=== PATIENT | female | born 1995 | race Hispanic/Latino ===

== ENCOUNTER → 2016-12-25 | Outpatient (REF) | payer OTHER | LOC: M SFHCLERA 14:55 | PROVIDERS: ATTEND Nurse Practitioner Family | DX: J06.9 Acute upper respiratory infection, unspecified (principal) ==

== ENCOUNTER → 2017-04-02 | Outpatient (REF) | payer OTHER | LOC: M SFHCLERA 18:49 | PROVIDERS: ATTEND Nurse Practitioner Family | DX: R10.13 Epigastric pain (principal) ==

== ENCOUNTER 2019-03-29 19:25 | Emergency (ER) | payer OTHER ==
[~2019-03-29] VITALS: Ht 167.6 cm; Wt 75.0 kg
[2019-03-29 20:27] LABS: BASO # 0.1 10^3/uL (0.0-0.2); BASO % 0.7 % (0.0-1.0); EOS # 0.6 10^3/uL (0.0-0.50); EOS % 8.7 % (0.0-3.0); HEMATOCRIT 42.7 % (36.0-47.0); HEMOGLOBIN 14.4 g/dl (12.0-15.5); LYMPH # 3.1 10^3/uL (1.5-6.5); LYMPH % 42.3 % (24.0-44.0); MEAN CORPUSCULAR HEMOGLOBIN 29.2 pg (27.0-33.0); MEAN CORPUSCULAR HGB CONC 33.7 g/dl (32.0-36.5); MEAN CORPUSCULAR VOLUME 86.6 fl (80.0-96.0); MONO # 0.5 10^3/uL (0.0-0.8); MONO % 6.5 % (0.0-5.0); NEUTROPHILS # 3.1 10^3/uL (1.8-7.7); NEUTROPHILS % 41.5 % (36.0-66.0); PLATELET COUNT, AUTOMATED 316 10^3/uL (150-450); RED BLOOD COUNT 4.93 10^6/uL (4.00-5.40); WHITE BLOOD COUNT 7.4 10^3/uL (4.0-10.0)
[2019-03-29 21:01] LABS: ALBUMIN 3.8 GM/DL (3.2-5.2); ALT/SGPT 29 U/L (12-78); BILIRUBIN,DIRECT < 0.1 MG/DL (0.0-0.2); BILIRUBIN,TOTAL 0.3 MG/DL (0.2-1.0); BLOOD UREA NITROGEN 20 MG/DL (7-18); CALCIUM LEVEL 9.4 MG/DL (8.5-10.1); CARBON DIOXIDE LEVEL 27 MEQ/L (21-32); CHLORIDE LEVEL 106 MEQ/L (98-107); GLOMERULAR FILTRATION RATE > 60.0 (>60); GLUCOSE, FASTING 94 MG/DL (70-100); LIPASE 167 U/L (73-393); POTASSIUM SERUM 4.7 MEQ/L (3.5-5.1); SODIUM LEVEL 139 MEQ/L (136-145); TOTAL PROTEIN 7.9 GM/DL (6.4-8.2)
--- NOTE | 2019-03-29 23:28 | REPVR ---
EXAM: US Abdomen Limited, Right Upper Quadrant EXAM DATE/TIME: 03/29/2019 10:48 PM CLINICAL HISTORY: 23 years old, female; Abdominal pain; Epigastric; Additional info: Ruq pain TECHNIQUE: Imaging protocol: Real-time ultrasound of the abdomen with image documentation. Examination was focused on the right upper quadrant. COMPARISON: No relevant prior studies available. FINDINGS: Liver: Normal. No masses. Gallbladder: Hydropic gallbladder. Thickening of the gallbladder wall. No calculi demonstrated. Minimal stuart-cholecystic fluid. Negative sonographic Dobson's sign. Findings may indicate acalculous cholecystitis. Common bile duct: Common bile but measures 2.3 mm. Pancreas: Visualized pancreas is unremarkable. Right kidney: Right kidney measures 10.3 x 4.2 x 1.5 cm. IMPRESSION: Hydropic gallbladder. Thickening of the gallbladder wall. No calculi demonstrated. Minimal stuart-cholecystic fluid. Negative sonographic Dobson's sign. Findings may indicate acalculous cholecystitis. Further evaluation with nuclear imaging could be obtained if clinically desired. Electronically signed by: Jamshid Linares On 03/29/2019 23:28:28 PM
[2019-03-29] MEDS ORDERED: KETOROLAC TROMETHAMINE 10 MG TAB PO ONE (23:30)
[2019-03-29] MEDS ORDERED: KETOROLAC 30 MG/ML VIAL (J1885) IV ONE (23:45)
[2019-03-29] MEDS ORDERED: ISOVUE-370 76% 100ML VIAL (Q9967) As Ordered ONE (23:47)
[2019-03-30 02:49] VITALS: BP 115/71
--- NOTE | 2019-03-30 02:57 | REPVR ---
EXAM: CT Abdomen and Pelvis With Contrast EXAM DATE/TIME: 03/29/2019 11:32 PM CLINICAL HISTORY: 23 years old, female; Abdominal pain; Localized; Right upper quadrant (ruq); Additional info: Ruq pain TECHNIQUE: Imaging protocol: Axial computed tomography images of the abdomen and pelvis with intravenous contrast. Coronal and sagittal reformatted images were created and reviewed. Radiation optimization: All CT scans at this facility use at least one of these dose optimization techniques: automated exposure control; mA and/or kV adjustment per patient size (includes targeted exams where dose is matched to clinical indication); or iterative reconstruction. Contrast material: ISO; Contrast volume: 100 ml; Contrast route: AC; COMPARISON: GALLBLADDER US 03/29/2019 10:43 PM FINDINGS: Lung bases are clear. No pleural or pericardial effusion. The liver, spleen, pancreas and adrenals are grossly normal. Gallbladder is significantly distended. Mild thickening of the gallbladder hauser. Nodes are calcified gallstones. Kidneys demonstrate symmetric function. No focal parenchymal abnormalities or obstructive uropathy. Small and large bowel loops are grossly normal. There is no evidence of enteric obstruction. There is a normal appendix. There are several prominent mesenteric lymph nodes in the central and right mesentery. Although not pathologically enlarged, these are more numerous than typically seen. Abdominal aorta is normal in caliber with no evidence of aneurysmal dilatation. Pelvic organs are grossly normal. Small free fluid in the pelvis may be physiologic. Visualized osseous structures are grossly normal for age. IMPRESSION: Gallbladder is significantly distended. Mild thickening of the gallbladder hauser. No evidence of calcified gallstones. Correlation with symptoms of cholecystitis is recommended. Multiple central and right mesenteric lymph nodes. Although not pathologically enlarged, these are more numerous than typically seen. Correlation with symptoms of mesenteric lymphadenitis is recommended. No other acute intra-abdominal or pelvic process. There is a normal appendix. Additional nonemergent findings as described above. Electronically signed by: Dl Mims On 03/30/2019 02:57:23 AM
[2019-03-30] MEDS ORDERED: CIPR-249 PO (03:04)
[2019-03-30] MEDS ORDERED: FLAG500T PO (03:04)
[2019-03-30] MEDS ORDERED: metroNIDAZOLE (FLAGYL) 500 MG TAB PO ONE (03:15)
[2019-03-30] MEDS ORDERED: CIPROFLOXACIN 500 MG TAB PO ONE (03:15)
--- NOTE | 2019-03-31 07:31 | ED PDOC ---
Post-Departure Follow-Up ft martha dupree and dr jacobo faxed formal report of ct abd/p for fu Molly Pastrana MD Mar 31, 2019 07:31
--- NOTE | 2019-03-31 07:34 | ED PDOC ---
Post-Departure Follow-Up also gb us faxed to dr dav dupree for thrasher Molly Pastrana MD Mar 31, 2019 07:34
== END 2019-03-30 03:32 | disposition home or self-care (01) ==
LOC: M ED 19:25
DX: K80.50 Calculus of bile duct without cholangitis or cholecystitis without obstruction (principal); I88.0 Nonspecific mesenteric lymphadenitis; E03.9 Hypothyroidism, unspecified; F17.210 Nicotine dependence, cigarettes, uncomplicated
CPT/HCPCS: 74177; 76705; 80048; 80076; 81001; 83690; 84702; 85025; 87086; 96374; 99284; J1885; Q9967